=== PATIENT | female | born 1990 ===

== ENCOUNTER 2022-04-19 13:02 | Outpatient (CLI) | payer OTHER | END 2022-04-19 13:03 | disposition home or self-care (01) | LOC: BICULT 13:02 | PROVIDERS: ATTEND Family Medicine | DX: N93.9 Abnormal uterine and vaginal bleeding, unspecified (principal); R10.2 Pelvic and perineal pain; R93.89 Abnormal findings on diagnostic imaging of other specified body structures | CPT/HCPCS: 76856; 93976 ==